=== PATIENT | female | born 1985 ===

== ENCOUNTER 2019-07-24 10:10 | Inpatient (IN) | payer OTHER ==
[2019-07-24] MEDS: ELECTROLYTE-148 SOLN 1,000 ML IV SCH ×2 (11:00→18:21)
[2019-07-24] MEDS ORDERED: OXYTOCIN 30 UNITS in 0.9% NS 30 UNIT/500 ML INFUS.BAG IVPB ONE (11:05)
[2019-07-24 11:33] VITALS: BMI 36.2
[2019-07-24] MEDS: OXYTOCIN 30 UNITS in 0.9% NS 30 UNIT/500 ML INFUS.BAG IVPB SCH (11:40)
[2019-07-24 13:19] LABS: BASO % 0.7 % (0-2.0); EOS % 2.3 % (0-4.5); HEMATOCRIT 30.7 % (32.4-45.2); HEMOGLOBIN 9.8 GM/dL (10.7-15.3); LYMPH % 14.2 % (8-40); MCH 26.6 pg (25.7-33.7); MCHC 31.9 g/dl (32.0-36.0); MEAN CELL VOLUME 83.5 fl (80-96); MEAN PLT VOLUME 10.9 fl (7.5-11.1); MONO % 8.6 % (3.8-10.2); NEUT % 74.2 % (42.8-82.8); PLATELET COUNT 306 K/MM3 (134-434); RBC 3.68 M/mm3 (3.60-5.2); RDW 15.1 % (11.6-15.6); WHITE BLOOD COUNT 11.3 K/mm3 (4.0-10.0)
[2019-07-24 13:29] LABS: INR 0.92 (0.83-1.09); PROTHROMBIN TIME (PATIENT) 10.9 SEC (9.7-13.0)
[2019-07-24 13:32] LABS: ACTIVATED PTT 23.8 SECONDS (25.2-36.5)
[2019-07-24 13:38] LABS: BLOOD UREA NITROGEN 6.6 mg/dL (7-18); CALCIUM 8.7 mg/dL (8.5-10.1); CREATININE 0.5 mg/dL (0.55-1.3); POTASSIUM 3.9 mmol/L (3.5-5.1)
--- NOTE | 2019-07-24 14:38 | HP ---
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: Alzheimer's, CVA, Dementia, Migraine, Multiple Sclerosis, Peripheral Neuropathy, Parkinson's, Seizure, Syncope, TIA, Vertigo, Other Cardiovascular: No: AFIB, Aneurysm, Aortic Insufficiency, Aortic Stenosis, CAD, CHF, Deep Vein Thrombosis, HTN, Hyperlipdemia, AL, Mitral Insufficiency, Mitral Stenosis, Murmur, Pulmonary Hypertension, Other Pulmonary: No: Asthma, Bronchitis, Cancer, COPD, O2 Dependent, Pneumonia, Previously Intubated, Pulmonary Embolus, Pulmonary Fibrosis, Sleep Apnea, Other Gastrointestinal: No: Ascites, Cancer, Constipation, Crohn's Disease, Diverticulitis, Diverticulosis, Esophageal Varices, Gastritis, GERD, GI Bleed, Hemorrhoids, Hiatal Hernia, Inflamatory Bowel Disease, Irritable Bowel Disease, Pancreatitis, Peptic Ulcer Disease, Ulcerative Colitis, Other Hepatobiliary: No: Cirrhosis, Cholelithiasis, Cholecystitis, Choledocholithiasis , Hepatitis A, Hepatitis B, Hepatitis C, Other Renal/: No: Renal Failure, Renal Inusuff, BPH, Cancer, Hematuria, Hemodialysis , Neurogenic Bladder, Renal Calculi, UTI, Other Reproductive: No: Ectopic , Endometriosis, Fibroids, PID, Polycystic Ovary Syndrome, Postmenopausal, Other ...: 1 ...Para: 0 ...Term: 0 ...: 0 ...Spon : 0 ...Induced : 0 ...Multiple Gestation: 0 ...EDC by Deandre: 07/24/19 Heme/Onc: No: Anemia, B12 Deficiency, Bleeding Disorder, Cancer, Current Chemotherapy, Current Radiation Therapy, Hemochromatosis, Hypercoaguable State, Myeloproliferative Synd, Sickle Cell Disease, Sickle Cell Trait, Thrombocytopenia, Other Infectious Disease: No: AIDS, C-Diff, Herpes Zoster, HIV, MRSA, STD's, Tuberculosis, VREF, Other Psych: No: Addictions, Anxiety, Bipolar, Depression, Panic, Psychosis, Schizophrenia, Other Musculoskeletal: No: Bursitis, Chronic low back pain, Hemiparesis, Hemiplegia, Osteoarthritis, Paraplegia, Other Rheumatology: No: Fibromyalgia, Gout, Lupus, Rheumatoid Arthritis, Sarcoidosis, Vasculitis, Other ENT: No: Allergic Rhinitis, Sinusitis, Other Endocrine: No: Frank's Disease, Dale's Disease, Diabetes Insipidus, Diabetes Mellitus, Hyperparathyroidism, Hyperthyroidism, Hypothyroidism, Osteopenia, SIADH, Other Dermatology: No: Basal Cell, Cellulitis, Eczema, Melanoma, Psoriasis, Squamous Cell, Other - Past Surgical History Past Surgical History: No: None, AAA Repair, AICD, Amputation, Appendectomy, Arthrosocopy, AV Fistula/Graft, Bariatric Surgery, Breast Biopsy, Bypass, CABG, Carotid Endarterectomy, Cataract Removal, Cholecystectomy, Colectomy, Colonoscopy, Colostomy, Craniotomy, , Cystectomy, Hernia Repair, Hysterectomy, Ileal Conduit, Ileosotomy, Joint Replacement, Kidney Transplant, Laminectomy, Liver Transplant, Mastectomy, Nephrectomy, Oopherectomy, Orchiectomy, Permanent Pacemaker, Prostatectomy, Splenectomy, Stent, Thoracotomy , TURP, Tonsillectomy, Tubal Ligation, Upper Endoscopy, Valve Replacement, Vasectomy, Vein Stripping/Ligation Hx Myomectomy: No Hx Transabdominal Cerclage: No - Advance Directives Advance Directives: Yes: Living Will - Smoking History Smoking history: Never smoked Have you smoked in the past 12 months: No - Alcohol/Substance Use Hx Alcohol Use: No History of Substance Use: reports: None - Social History Usual Living Arrangement: Yes: With Significant Other Do you think of yourself as: Straight/Heterosexual ADL: Independent History of Recent Travel: No Home Medications - Allergies Allergies/Adverse Reactions: Allergies Allergy/AdvReac Type Severity Reaction Status Date / Time azithromycin [From Zithromax] Allergy Intermediate Hives Verified 07/24/19 11:00 bee pollen Allergy Intermediate Hives Verified 07/24/19 11:00 bee venom protein (honey bee) Allergy Intermediate Hives Verified 07/24/19 11:01 - Home Medications Home Medications: Ambulatory Orders NK [No Known Home Medication] 07/24/19 Family Medical History Family History: Denies Review of Systems - Review of Systems Constitutional: reports: No Symptoms Eyes: reports: No Symptoms HENT: reports: No Symptoms Neck: reports: No Symptoms Cardiovascular: reports: No Symptoms Respiratory: reports: No Symptoms Gastrointestinal: reports: No Symptoms Genitourinary: reports: No Symptoms Breasts: reports: No Symptoms Reported Musculoskeletal: reports: No Symptoms Integumentary: reports: No Symptoms Neurological: reports: No Symptoms Endocrine: reports: No Symptoms Hematology/Lymphatic: reports: No Symptoms Psychiatric: reports: No Symptoms Physical Exam - Maternity Vital Signs: Vital Signs Temperature 98.9 F 07/24/19 14:00 Pulse Rate 67 07/24/19 14:00 Respiratory Rate 18 07/24/19 14:00 Blood Pressure 136/72 07/24/19 14:00 O2 Sat by Pulse Oximetry (%) Constitutional: Yes: Well Nourished, No Distress, Calm Eyes: Yes: WNL, Conjunctiva Clear, EOM Intact HENT: Yes: WNL, Atraumatic, Normocephalic Neck: Yes: WNL, Supple, Trachea Midline Cardiovascular: Yes: WNL, Regular Rate and Rhythm Lungs: Clear to auscultation Breast(s): Yes: WNL - Abdominal Exam/OB Fundal Height: 38 Number of Fetuses: Single Presentation: Vertex Contractions: Yes Regularity: Irregular Intensity: Mild Monitor Mode: External Heart Rate Location: [facility] Category: I Accelerations: Uniform - Vaginal Exam/OB Vaginal Bleediing: No Speculum Exam: No Dilatation (cm): 3 Effacement (%): 60 Amniotic Membrane Status: Intact Presentation: Vertex/Position Station: -2 - Physical Exam Musculoskeletal: Yes: WNL Extremities: Yes: WNL Edema: Yes Edema: LUE: 1+, RUE: 1+, LLE: 1+, RLE: 1+ Integumentary: Yes: WNL Deep Tendon Reflex Grade: Normal +2 ...Motor Strength: WNL Psychiatric: Yes: WNL, Alert, Oriented - Labs Lab Results: CBC, BMP 07/24/19 11:58 07/24/19 11:58 Hemorrhage Risk Assessment - Risk Factors Medium Risk Factors: Yes: None High Risk Factors: Yes: None Risk Score: 1 Risk Level: Medium Risk Assessment/Plan for pitocin and laboring
--- NOTE | 2019-07-24 14:39 | PN ---
Progress Note (short form) - Note Progress Note: 230 pm, arom, nst reactive, uc q 5 min, continue pitocin
[2019-07-24] MEDS ORDERED: FENTANYL/BUPIVACAINE/NS/PF - PCEA - 50 ML DISP.SYRIN EP ONE ×2 (18:16→22:44)
[2019-07-24] MEDS ORDERED: NALOXONE HCL 0.4 MG/ML VIAL IVPUSH PRN (18:21)
[2019-07-24] MEDS ORDERED: LIDO 2%/EPI 1:200000 PRESRVFRE (20 ML SDVIAL) ONE (18:24)
[2019-07-24] MEDS: FENTANYL/BUPIVACAINE/NS/PF - PCEA - 50 ML DISP.SYRIN EP SCH (18:40)
--- NOTE | 2019-07-24 20:53 | PN ---
Progress Note (short form) - Note Progress Note: 730 pm , 5 cm, comfort w epidural, uc q 5 min, continue pitocin
[2019-07-25] MEDS ORDERED: FENTANYL/BUPIVACAINE/NS/PF - PCEA - 50 ML DISP.SYRIN EP ONE (03:07)
--- NOTE | 2019-07-25 03:11 | PN ---
Progress Note (short form) - Note Progress Note: 3 am , 5 cm, nst recoverable late decel, uc q 3 min, will wait another 1 1/2 hr , then c s if no change
[2019-07-25] MEDS ORDERED: CITRIC ACID/SODIUM CITRATE 30 ML UNIT-DOSE CUP PO ONE (04:31)
--- NOTE | 2019-07-25 04:33 | PN ---
Progress Note (short form) - Note Progress Note: 430 am, no cervical change, 5 cm, -2, recoverable deccel , uc q 3min
[2019-07-25] MEDS ORDERED: LIDO 2%/EPI 1:200000 PRESRVFRE (20 ML SDVIAL) ONE (04:37)
[2019-07-25] MEDS ORDERED: DEXAMETHASONE SOD PHOSPHATE 4 MG/1 ML VIAL ONE (04:41)
[2019-07-25] MEDS ORDERED: KETOROLAC TROMETHAMINE 30 MG/1 ML VIAL ONE (04:41)
[2019-07-25] MEDS ORDERED: OXYTOCIN 10 UNITS/ML VIAL ONE (04:42)
[2019-07-25] MEDS ORDERED: ONDANSETRON 4 MG/2 ML VIAL IVPUSH PRN (04:50)
[2019-07-25] MEDS ORDERED: OXYTOCIN 20 UNITS in 0.9% NS 20 UNIT/1,000 ML INFUS.BAG IV ONE (06:12)
[2019-07-25] MEDS ORDERED: METHYLERGONOVINE MALEATE 0.2 MG/1 ML AMP IM PRN (06:13)
[2019-07-25] MEDS ORDERED: IBUPROFEN 800 MG/8 ML IJ IVPB PRN (06:13)
[2019-07-25] MEDS ORDERED: oxyCODONE HCL 5 MG TABLET PO PRN (06:13)
--- NOTE | 2019-07-25 06:22 | OP ---
Operative Note - Note: Operative Date: 07/25/19 Pre-Operative Diagnosis: f to progress, Operation: primary lt c s Findings: can x 1 , caput , cone shape head Post-Operative Diagnosis: Same as Pre-op Surgeon: Alec Dorman Home Stager: Александр Bates Anesthesiologist/RED HAT LINUX ADMINISTRATOR: Prakash Benson Anesthesia: Spinal Estimated Blood Loss (mls): 700 (no complications ) Operative Report Dictated: Yes
[2019-07-25] MEDS: OXYTOCIN 20 UNITS in 0.9% NS 20 UNIT/1,000 ML INFUS.BAG IV SCH ×2 (07:34→18:40)
[2019-07-25] MEDS: DEXTROSE 5%-LACTATED RINGERS 1,000 ML IV SCH (20:06)
[2019-07-25] MEDS: ELECTROLYTE-148 SOLN 1,000 ML IV SCH (20:06)
[2019-07-25] MEDS: OXYTOCIN 30 UNITS in 0.9% NS 30 UNIT/500 ML INFUS.BAG IVPB SCH (20:06)
[2019-07-25] MEDS: FENTANYL/BUPIVACAINE/NS/PF - PCEA - 50 ML DISP.SYRIN EP SCH (20:08)
[2019-07-25] MEDS: SENNOSIDES/DOCUSATE COMBO (SENNA PLUS) TABLET (UD) PO PRN (22:20)
[2019-07-25] MEDS: ACETAMINOPHEN 325 MG TABLET (FP) PO PRN (22:20)
[2019-07-25] MEDS: SIMETHICONE 80 MG TAB.CHEW (FP) PO PRN (22:20)
[2019-07-25] MEDS: oxyCODONE HCL 5 MG TABLET PO PRN (22:21)
[2019-07-25] MEDS: IBUPROFEN 600 MG TABLET (FP) PO PRN (22:21)
[2019-07-26] MEDS: IBUPROFEN 600 MG TABLET (FP) PO PRN ×2 (02:33→09:01)
[2019-07-26] MEDS: ACETAMINOPHEN 325 MG TABLET (FP) PO PRN ×4 (02:33→23:42)
[2019-07-26] MEDS: SIMETHICONE 80 MG TAB.CHEW (FP) PO PRN ×5 (02:33→23:43)
[2019-07-26] MEDS: oxyCODONE HCL 5 MG TABLET PO PRN ×5 (02:34→23:43)
[2019-07-26] MEDS ORDERED: BISACODYL 10 MG SUPP.RECT RC PRN (06:13)
[2019-07-26 09:15] LABS: BASO % 0.4 % (0-2.0); EOS % 2.4 % (0-4.5); HEMATOCRIT 25.3 % (32.4-45.2); HEMOGLOBIN 8.2 GM/dL (10.7-15.3); MCH 26.9 pg (25.7-33.7); MCHC 32.3 g/dl (32.0-36.0); MEAN CELL VOLUME 83.1 fl (80-96); MEAN PLT VOLUME 10.9 fl (7.5-11.1); MONO % 8.8 % (3.8-10.2); NEUT % 74.4 % (42.8-82.8); PLATELET COUNT 241 K/MM3 (134-434); RBC 3.05 M/mm3 (3.60-5.2); RDW 15.3 % (11.6-15.6); WHITE BLOOD COUNT 15.7 K/mm3 (4.0-10.0)
[2019-07-26] MEDS ORDERED: FLU VACCINE QUAD 60 MCG/0.5 ML (MDV 19-20) IM ONE (10:00)
[2019-07-26] MEDS ORDERED: DIPHTH,PERTUSS(ACELL),TET 0.5 ML DISP.SYRIN IM ONE (10:00)
[2019-07-26] MEDS ORDERED: FLU VACC QS2019-20(6MOS UP)/PF 60 MCG/0.5 ML SYRINGE IM ONE (10:00)
[2019-07-26] MEDS: ENOXAPARIN NA (PORCINE) 40 MG/0.4 ML DISP.SYRIN SQ SCH (10:59)
--- NOTE | 2019-07-26 15:53 | PN ---
Post Progress Note Post Day: 1 Type of Delivery: Primary C/S Vital Signs: Vital Signs Temperature 98.0 F 07/26/19 14:00 Pulse Rate 74 07/26/19 14:00 Respiratory Rate 18 07/26/19 14:00 Blood Pressure 120/76 07/26/19 14:00 O2 Sat by Pulse Oximetry (%) 98 07/25/19 07:30 Breast Exam: Yes: Soft Uterus: Yes: Fundus Firm, Fundus below umbilicus Incision: Yes: Dressing dry and intact, Sutures intact Abdomen/GI: Yes: Abdomen soft, Passing flatus, Tolerating PO Lochia: Yes: Serosa Lochia, amount: Small Extremities: Yes: Calves non-tender Perineum: Yes: Intact Activity: Ambulating - Labs Labs: CBC WBC 15.7 K/mm3 (4.0-10.0) H 07/26/19 07:25 RBC 3.05 M/mm3 (3.60-5.2) L 07/26/19 07:25 Hgb 8.2 GM/dL (10.7-15.3) L 07/26/19 07:25 Hct 25.3 % (32.4-45.2) L D 07/26/19 07:25 MCV 83.1 fl (80-96) 07/26/19 07:25 MCH 26.9 pg (25.7-33.7) 07/26/19 07:25 MCHC 32.3 g/dl (32.0-36.0) 07/26/19 07:25 RDW 15.3 % (11.6-15.6) 07/26/19 07:25 Plt Count 241 K/MM3 (134-434) D 07/26/19 07:25 MPV 10.9 fl (7.5-11.1) 07/26/19 07:25 Absolute Neuts (auto) 11.7 K/mm3 (1.5-8.0) H 07/26/19 07:25 Neutrophils % 74.4 % (42.8-82.8) 07/26/19 07:25 Lymphocytes % 14.0 % (8-40) 07/26/19 07:25 Monocytes % 8.8 % (3.8-10.2) 07/26/19 07:25 Eosinophils % 2.4 % (0-4.5) 07/26/19 07:25 Basophils % 0.4 % (0-2.0) 07/26/19 07:25 Nucleated RBC % 0 % (0-0) 07/26/19 07:25 Assessment/Plan oob, regular diet
[2019-07-26] MEDS: SENNOSIDES/DOCUSATE COMBO (SENNA PLUS) TABLET (UD) PO PRN (19:54)
[2019-07-26] MEDS: FERROUS SO4 325 MG TABLET (FP) PO SCH (22:19)
--- NOTE | 2019-07-27 08:34 | OP ---
DATE OF OPERATION: 07/25/2019 PREOPERATIVE DIAGNOSIS: Failure to progress. POSTOPERATIVE DIAGNOSIS: Failure to progress, cord around the neck x1 and caput with asynclitic position of the baby. PROCEDURE: Primary low transverse section. SURGEON: Alec Dorman MD TWISTHAND: EDIE López ANESTHESIOLOGIST: ALLISON Abdi ANESTHESIA: Spinal. INDICATION: This is a 34-year-old female patient, 40 weeks and 2 days , was admitted for induction process because of borderline oligohydramnios. Patient came into the hospital and had artificial rupture of membranes. The patient has a history of a gastric sleeve, and the patient's BMI is 36.3. Borderline oligohydramnios and the patient had Pitocin. Patient was 2-3 cm to start with around 6:30 on July 24. Patient was already 4-5 cm. Epidural was given. So, after 4-5 cm from 6:30 until about 3 o'clock in the morning, still 4-5 cm at 4 o'clock in the morning. So, it is about 10 hours when about still 4-5 cm and baby was felt to have a lot of caput with a lot of cone shape. Asynclitic position of the baby was anticipated, and patient had also a few variable and late decelerations which were recovered. So, decision was made to take the patient to the OR for primary low transverse section for failure to progress. DESCRIPTION OF PROCEDURE: Patient had already had epidural. So, patient had epidural re-top-off, and the patient was placed on the operating table in supine position. The patient's abdomen and pelvis were prepped and draped in the usual sterile manner. Pfannenstiel incision was made. Incision was made through skin and subcutaneous tissue, and to the fascia that was nicked in the midline. The fascia extended bilaterally. Intraperitoneal cavity was entered. . Low transverse segment was entered. Baby was delivered from ADRIANNE position. Asynclitic was seen as baby had a cone shape and a large caput and the cord around the neck x1 was seen, too. The baby was handed over to the structural steel trades worker after umbilical cord doubly clamped and cut. Placenta was removed. Uterus closed in single layer, first layer interlocking Vicryl sutures. Good hemostasis. Both gutters were cleaned. Both ovaries, fallopian tubes, and uterus were within normal limits. No complications. Draining clear urine. Blood loss about 700 mL. . The peritoneum was closed. The fascia was closed. Transferred to recovery room in stable condition. MD WILLIAM SANTAMARIA/[id number]
--- NOTE | 2019-07-27 08:56 | PN ---
Progress Note (short form) - Note Progress Note: Anesthesia Postop Check Note: Patient is s/p c section under epidural anesthesia with duramorph for post operative pain control. Post op day two. Patient is doing well, no nausea, vomiting, headache, or backache. Pain under control. No adverse anesthetic complications. Dept of anesthesia will sign off care at this time.
[2019-07-27] MEDS: ENOXAPARIN NA (PORCINE) 40 MG/0.4 ML DISP.SYRIN SQ SCH (09:44)
[2019-07-27] MEDS: FERROUS SO4 325 MG TABLET (FP) PO SCH ×2 (09:44→22:59)
[2019-07-27] MEDS: ACETAMINOPHEN 325 MG TABLET (FP) PO PRN ×2 (09:45→14:19)
[2019-07-27] MEDS: oxyCODONE HCL 5 MG TABLET PO PRN (09:45)
[2019-07-27] MEDS: SIMETHICONE 80 MG TAB.CHEW (FP) PO PRN (14:18)
[2019-07-27] MEDS: IBUPROFEN 600 MG TABLET (FP) PO PRN (14:18)
--- NOTE | 2019-07-27 19:47 | PN ---
Post Progress Note Post Day: 2 Type of Delivery: Primary C/S Vital Signs: Vital Signs Temperature 98.4 F 07/27/19 10:00 Pulse Rate 77 07/27/19 10:00 Respiratory Rate 18 07/27/19 10:00 Blood Pressure 132/78 07/27/19 10:00 O2 Sat by Pulse Oximetry (%) 98 07/25/19 07:30 Breast Exam: Yes: Soft Uterus: Yes: Fundus Firm, Fundus below umbilicus Incision: Yes: Dressing dry and intact, Sutures intact Abdomen/GI: Yes: Abdomen soft, Passing flatus, Tolerating PO Lochia: Yes: Serosa Lochia, amount: Small Extremities: Yes: Calves non-tender Perineum: Yes: Intact Activity: Ambulating (doing well, dc pt home tomorrow ) - Labs Labs: CBC WBC 15.7 K/mm3 (4.0-10.0) H 07/26/19 07:25 RBC 3.05 M/mm3 (3.60-5.2) L 07/26/19 07:25 Hgb 8.2 GM/dL (10.7-15.3) L 07/26/19 07:25 Hct 25.3 % (32.4-45.2) L D 07/26/19 07:25 MCV 83.1 fl (80-96) 07/26/19 07:25 MCH 26.9 pg (25.7-33.7) 07/26/19 07:25 MCHC 32.3 g/dl (32.0-36.0) 07/26/19 07:25 RDW 15.3 % (11.6-15.6) 07/26/19 07:25 Plt Count 241 K/MM3 (134-434) D 07/26/19 07:25 MPV 10.9 fl (7.5-11.1) 07/26/19 07:25 Absolute Neuts (auto) 11.7 K/mm3 (1.5-8.0) H 07/26/19 07:25 Neutrophils % 74.4 % (42.8-82.8) 07/26/19 07:25 Lymphocytes % 14.0 % (8-40) 07/26/19 07:25 Monocytes % 8.8 % (3.8-10.2) 07/26/19 07:25 Eosinophils % 2.4 % (0-4.5) 07/26/19 07:25 Basophils % 0.4 % (0-2.0) 07/26/19 07:25 Nucleated RBC % 0 % (0-0) 07/26/19 07:25
--- NOTE | 2019-07-27 19:50 | DS ---
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 Vital Signs: Vital Signs Temperature 98.4 F 07/27/19 10:00 Pulse Rate 77 07/27/19 10:00 Respiratory Rate 18 07/27/19 10:00 Blood Pressure 132/78 07/27/19 10:00 O2 Sat by Pulse Oximetry (%) 98 07/25/19 07:30 Constitutional: Yes: Well Nourished, No Distress, Calm Eyes: Yes: WNL, Conjunctiva Clear, EOM Intact HENT: Yes: WNL, Atraumatic, Normocephalic Neck: Yes: WNL, Supple, Trachea Midline Cardiovascular: Yes: WNL, Regular Rate and Rhythm Respiratory: Yes: WNL, Regular, CTA Bilaterally Gastrointestinal: Yes: WNL, Normal Bowel Sounds, Soft ...Rectal Exam: Yes: WNL Renal/: Yes: WNL Pelvis: Yes: WNL External Genitalia: Yes: Normal Internal Exam Deferred: Yes Vaginal Exam: Yes: Normal Cervix: Yes: Normal Uterus: Yes: Normal Adnexa: Normal: Bilateral ....Post : Yes: Uterus firm, Uterus non-tender Breast(s): Yes: WNL Musculoskeletal: Yes: WNL Extremities: Yes: WNL Edema: Yes Edema: LUE: 1+, RUE: 1+, LLE: 1+, RLE: 1+ Integumentary: Yes: WNL Wound/Incision: Yes: Clean/Dry, Well Approximated Neurological: Yes: WNL, Alert, Oriented ...Motor Strength: WNL Psychiatric: Yes: WNL, Alert, Oriented Labs: CBC, BMP 07/26/19 07:25 07/24/19 11:58 Delivery - Delivery Type of Anesthesia: Epidural EBL (cc): 700 Delivery, Single - Stages of Labor Date 1st Stage Initiatied: 07/24/19 Time 1st Stage Initiated: 18:40 Date of Delivery: 07/25/19 Time of Delivery: 05:18 Time Placenta Delivered: 05:20 - Condition of Solar Thermal Installer/Hebrew Teacher Present: No Infant Gender: Female Weight: 3.629 kg Position: Left, OA Total Hours ROM (Hrs/Mins): 15h 15m - 1 Minute Total Score: 9 5 Minutes Total Score: 9 - [place] Feeding Plan Initial Plan: Elected not to breastfeed exclusively throughout hospitalization Discharge Summary Problems reviewed: Yes Reason For Visit: LABOR INDUCTION Procedures: Principal: primary lt c s Other Procedures: none Hospital Course: uneventful Health Concerns: none Plan of Treatment: oob as much as possible Goals: return to work in 8 weeks Condition: Good - Instructions Diet, Activity, Other Instructions: Physical activity Resume your normal everyday activity as tolerated no heavy lifting or exercise until seen by your surgeon. You may walk unlimited nia of and climb stairs. You may resume driving the car when you feel safe and comfortable behind the wheel. No sexual activity as instructed. Wound care If you have a bandage, leave it on, and keep dry for 48-72 hours. After that time discard the outer bandage. If they are tapes on the skin under the out of bandage leave them in place. They will peel off in the next 7 to 10 days. Do Not Peel them off. You may shower the day after surgery. If there are tapes present on the skin, you may shower over them. Diet There are no dietary restrictions. Eat healthy, high-fiber foods. Drink 6 to 8 glasses of liquid each day. This will assist in keeping your bowels are regular. Pain management You may take Tylenol or acetaminophen or Ibuprofen (for example, Motrin, Advil etc.) from my pain prescription medication is ordered should be taken as prescribed for moderate to severe pain. Call MD for any of the following: Severe pain not relieved by medication Fever of 101 or higher Excessive bleeding or drainage on dressing Inability to urinate Physical activity Resume your normal everyday activity as tolerated no heavy lifting or exercise until seen by your surgeon. You may walk unlimited nia of and climb stairs. You may resume driving the car when you feel safe and comfortable behind the wheel. No sexual activity as instructed. Wound care If you have a bandage, leave it on, and keep dry for 48-72 hours. After that time discard the outer bandage. If they are tapes on the skin under the out of bandage leave them in place. They will peel off in the next 7 to 10 days. Do Not Peel them off. You may shower the day after surgery. If there are tapes present on the skin, you may shower over them. Diet There are no dietary restrictions. Eat healthy, high-fiber foods. Drink 6 to 8 glasses of liquid each day. This will assist in keeping your bowels are regular. Pain management You may take Tylenol or acetaminophen or Ibuprofen (for example, Motrin, Advil etc.) from my pain prescription medication is ordered should be taken as prescribed for moderate to severe pain. Call MD for any of the following: call dr camp for 2 weeks appointment Severe pain not relieved by medication Fever of 101 or higher Excessive bleeding or drainage on dressing Inability to urinate Disposition: HOME - Home Medications Comprehensive Discharge Medication List: Ambulatory Orders NK [No Known Home Medication] 07/24/19
[2019-07-28] MEDS: ACETAMINOPHEN 325 MG TABLET (FP) PO PRN (07:37)
[2019-07-28] MEDS: IBUPROFEN 600 MG TABLET (FP) PO PRN (07:37)
[2019-07-28] MEDS: SIMETHICONE 80 MG TAB.CHEW (FP) PO PRN (07:37)
[2019-07-28] MEDS: ENOXAPARIN NA (PORCINE) 40 MG/0.4 ML DISP.SYRIN SQ SCH (09:35)
[2019-07-28] MEDS: FERROUS SO4 325 MG TABLET (FP) PO SCH (09:35)
[2019-07-28 10:30] VITALS: BP 140/84; PULSE 77; TEMP 98
--- NOTE | 2019-07-28 13:17 | PATH ---
Surgical Pathology Report Patient Name: ZULMA KANG [facility]. Rec. 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 Electronically Signed Cadence Mora M.D. Gross Description The specimen is received fresh labeled placenta and is a 387 gram, 13.5 x 12.0 x 3.5 cm. placenta with attached membranes and umbilical cord. The attached membranes are levy, translucent with focal opacities and insert marginally. The umbilical cord measures 37 cm. in length and averages 1 cm. in diameter. The cord inserts eccentrically, 1 cm. to the nearest margin. No true knots or strictures are identified. Cut surface of the umbilical cord reveals 3 vessels. The surface is bauer blue with moderate fibrin deposition and appropriate caliber vessels. The maternal surface is red-brown and intact. Sectioning reveals red-brown, spongy parenchyma. No lesions are identified. Systems Analyst Developer sections are submitted in three cassettes as follows: 1- membrane rolls and umbilical cord; 2-3- full thickness sections of placenta. 07/27/2019 [facility]07/27/2019
== END 2019-07-28 13:20 | disposition home or self-care (01) | DRG 788 ==
LOC: JLDR 10:10 → J3W 07-25 07:40
PROVIDERS: ADMIT Obstetrics & Gynecology; ATTEND Obstetrics & Gynecology
PROC: 10D00Z1 Extraction of Products of Conception, Low, Open Approach (ICD-10-PCS; principal; 2019-07-25)
DX: O62.1 Secondary uterine inertia (principal); O48.0 Post-term pregnancy; O69.81X0 Labor and delivery complicated by cord around neck, without compression, not applicable or unspecified; Z3A.40 40 weeks gestation of pregnancy; Z37.0 Single live birth
CPT/HCPCS: 36415; 80048; 85025; 85610; 85730; 86593; 86850; 86900; 86901; 87389; 88307-TC; 90686; 90715; G0008